=== PATIENT | male | born 1950 | race Hispanic/Latino ===

== ENCOUNTER → 2017-11-28 | Day surgery (SDC) | payer MEDICARE ==
[2017-11-27 10:08] LABS: BASOPHILS % 0.4 % (0.0-1.0); EOSINOPHILS # (AUTO) 0.1 (0.0-0.4); EOSINOPHILS % 1.3 % (0.0-6.0); HEMATOCRIT 38.8 % (38.2-49.6); HEMOGLOBIN 13.4 g/dL (14.0-18.0); LYMPHOCYTES % 17.7 % (18.0-39.1); MEAN CORPUSCULAR HEMOGLOBIN 29.8 pg (28-32); MEAN CORPUSCULAR HGB CONC 34.5 g/dL (31-35); MEAN CORPUSCULAR VOLUME 86.2 fL (81-99); MONOCYTES # (AUTO) 0.5 (0.2-0.8); MONOCYTES % 9.9 % (4.4-11.3); NEUTROPHILS # (AUTO) 3.8 (2.1-6.9); NEUTROPHILS % 69.8 % (38.7-80.0); PLATELET COUNT 166 x10e3/uL (140-360); RED CELL DISTRIBUTION WIDTH 14.6 % (11.7-14.4)
[2017-11-27 10:22] LABS: BLOOD UREA NITROGEN 16 mg/dL (7-26); BUN/CREATININE RATIO 19 (6-25); CALCIUM 8.9 mg/dL (8.4-10.2); CARBON DIOXIDE 29 mmol/L (22-29); CHLORIDE 103 mmol/L (98-107); CREATININE, SERUM 0.83 mg/dL (0.72-1.25); EST GLOMERULAR FILTRATION RATE > 60 ML/MIN (60-); GLUCOSE 121 mg/dL (74-118); SODIUM 141 mmol/L (136-145)
--- NOTE | 2017-11-27 10:42 | Diagnostic Imaging Report ---
PROCEDURE:CHEST 2 VIEWS TECHNIQUE:PA and lateral chest INDICATION:Preoperative evaluation for port catheter placement COMPARISON:None. FINDINGS: Lungs are clear. No effusions. Normal cardiac mediastinal silhouette. Intact skeleton. CONCLUSION: Normal chest. Dictated by: Darrel Mas M.D. on 11/27/2017 at 10:41 Electronically approved by: Darrel Mas M.D. on 11/27/2017 at 10:41
[~2017-11-28] MED LIST: BUPIVACAINE 0.25% 30ML SDV INJ ONE; DEXAMETHASONE SOD PHOS INJ 4 MG/ML VIAL ONE; FENTANYL CITRATE/PF 100MCG/2 ML INJ ONE; HEPARIN SOD (PORCINE) 5,000 UNIT/ML VIAL ONE; LEVOFLOXACIN 500MG/D5W 100ML 100 ML IV ONE; LIDOCAINE HCL 2% LOCAL INJ 5 ML SDV VIAL INJ ONE; LISINOPRIL2.5 MG PO; METFORMIN HCL500 MG PO; MIDAZOLAM HCL 2 MG/2 ML VIAL ONE; ONDANSETRON HCL INJ 2 MG/ML VIAL ONE; PRAVASTATIN SOD10 MG; PROPOFOL IV EMULSION 10 MG/ML 20 ML VIAL ONE; SEVOFLURANE INHAL SOLN 250 ML PEN BTL ONE; SODIUM CHLORIDE 0.9% 500ML 500 ML ONE; TAMSULOSIN HCL0.4 MG
--- OUTSIDE RECORDS SUMMARY | 2017-11-28 07:46 | XMS REPORT ---
Author Author [facility] Address Unknown Phone Unavailable Care Team Providers Care [employer] Alignment Specialist Name Role Phone EDDIEDELFINOMYRNA Unavailable Unavailable Problems This patient has no known problems. Allergies, Adverse Reactions, Alerts This patient has no known allergies or adverse reactions. Medications This patient has no known medications. Results Test Description Test Time Test Comments Text Results Atomic Results Result Comments CHEST 2 VIEWS [place] [address] Patient Name: VANNESSA BUSH MR #: [id number] : 1950 Age/Sex: 67/M Req #: [id number] Adm Physician: Ordered by: MARIA DEL CARMEN LIZARRAGA MD Report #: [id number] Location: OR Room/Bed: Procedure: 0315- 0026 DX/CHEST 2 VIEWS Exam Date: 11/27/17 Exam Time : 1013 REPORT STATUS: Signed PROCEDURE: CHEST 2 VIEWS TECHNIQUE: PA and lateral chest INDICATION: Preoperative evaluation for port catheter placement COMPARISON: None. FINDINGS: Lungs are clear. No effusions. Normal cardiac mediastinal silhouette. Intact skeleton. CONCLUSION: Normal chest. Dictated by: Ceasar Mas M.D. on 11/27/2017 at 10:41 Electronically approved by: Ceasar Mas M.D. on 11/27/2017 at 10:41 Dictated By: CEASAR MAS MD [id number] Transcribed By: AUGUSTUS on 11/27/17 1041 COPY TO: MARIA DEL CARMEN LIZARRAGA MD
--- NOTE | 2017-11-28 12:33 | Operative Report ---
DATE OF PROCEDURE: November 28, 2017 PREOPERATIVE DIAGNOSIS: Bladder cancer needing intravenous access for chemotherapy. POSTOPERATIVE DIAGNOSIS: Bladder cancer needing intravenous access for chemotherapy. OPERATION PERFORMED: Placement of left subclavian venous access port under C-arm guidance. RELISH BLENDER: KATHRYN Flores. ANESTHESIA: General. COMPLICATIONS: None. ESTIMATED BLOOD LOSS: Minimal. DESCRIPTION OF PROCEDURE: With the patient lying in bed in the Trendelenburg position, under good general anesthesia, the left chest and neck were prepped with Betadine solution and draped in the usual manner. A standard left subclavian venipuncture was performed. A guidewire was advanced into central venous position. Using the C-arm, the tip of the guidewire was confirmed to be at the level of the superior vena cava, and the left lung was fully expanded. A pocket was then created in the left anterior chest to accept the reservoir. The catheter was threaded to the subclavian position. The reservoir was then anchored to the anterior chest wall with interrupted sutures 2-0 silk. The reservoir and catheter were fully heparinized, and the catheter was cut to the appropriate length. The peel-away sheath was then placed over the guidewire. The peel-away sheath was removed, and the catheter was threaded into central venous position without any difficulty. The peel-away sheath was removed. There was good blood return, and the reservoir and catheter were fully heparinized. Using the C-arm, the tip of the catheter was confirmed to be at the level of the superior vena cava, and the left lung was fully expanded. The lungs were then closed in layers. The wounds were then closed in layers. The subcutaneous tissue was approximated with 3-0 and 4-0 Vicryl, and the skin was closed with subcuticular 5-0 Vicryl. Benzoin, Steri-Strips and Band-Aids were applied. Dressings were placed. The sponge, lap and needle count was correct. Patient tolerated the procedure well and returned to the recovery room in stable condition. Job#: [id number]
== END | disposition home or self-care (01) ==
LOC: OR 07:44
PROVIDERS: ATTEND Surgery
DX: C67.9 Malignant neoplasm of bladder, unspecified (principal); I10 Essential (primary) hypertension; E11.9 Type 2 diabetes mellitus without complications; Z01.810 Encounter for preprocedural cardiovascular examination; Z01.812 Encounter for preprocedural laboratory examination; Z01.818 Encounter for other preprocedural examination
CPT/HCPCS: 36415 ×2; 36561; 71046; 77001; 80048; 82948; 85025; 93005; C1751; J1100; J1644; J1956; J2001; J2250; J2405; J7040